=== PATIENT | female | born 1935 | race Caucasian/White ===

== ENCOUNTER 2022-07-25 10:56 | Inpatient (IN) ==
--- NOTE | 2022-07-25 11:39 | Cat Scan Report ---
CLINICAL INFORMATION: Trauma COMPARISON: None. TECHNIQUE: 2.5 mm helical slices were obtained in the skull base to vertex. Following reconstruction, axial reformatted images were reviewed at bone and parenchymal windows. The exam was performed using radiation dose optimization techniques including, but not limited to, automated exposure control, adjustment of the mA and/or kV according to patient size and use of iterative reconstruction technique. FINDINGS: The ventricles, sulci, fissures, and cisterns are symmetrically enlarged compatible with mild age-related atrophy. No extra-axial fluid collections are identified. Mild patchy chronic ischemic changes, in the deep cerebral white matter, are expected for age. There is no hemorrhage, mass effect, or edema. Bone windows show no osseous abnormality. IMPRESSION: Mild atrophy and chronic ischemic changes in the deep cerebral white matter-expected for age. No acute findings Interpreted and Authenticated by: Anshu Millan 07/25/22
[2022-07-25] MEDS ORDERED: ACETAMINOPHEN 325 MG TABLET PO ONE (11:51)
--- NOTE | 2022-07-25 11:53 | XRay Report ---
CLINICAL INFORMATION: Trauma COMPARISON: None. FINDINGS: Acute basicervical fracture of the left hip with moderate impaction and coxa vara angulation appreciated. Older right hip prostheses remains anatomically aligned. There is moderate heterotopic ossification over the right lesser trochanteric area. Mild degenerative change seen in the left hip and both SI joints unchanged. Soft tissue swelling over the fracture site. IMPRESSION: Acute basicervical fracture left hip, with coxa vera angulation and impaction Interpreted and Authenticated by: Anshu Millan 07/25/22
--- NOTE | 2022-07-25 12:00 | XRay Report ---
CLINICAL INFORMATION: Preop COMPARISON: 03/14/2015 TECHNIQUE: Portable FINDINGS: The heart size, mediastinum and pulmonary vessels are unremarkable. The lungs are clear. There are no effusions. The bones and soft tissues are within normal limits. IMPRESSION: Normal chest. Interpreted and Authenticated by: Anshu Millan 07/25/22
--- NOTE | 2022-07-25 12:15 | Cat Scan Report ---
CLINICAL INFORMATION: Trauma-fall COMPARISON: None. TECHNIQUE: 0.625 mm helical slices were obtained from the mid T12 through mid S2 vertebral bodies. Following reconstruction, 2.5 mm coronal, sagittal, and axial reformations (angle to the disc spaces) were processed. Exam was reviewed at bone and soft tissue windows.The exam was performed using radiation dose optimization techniques including, but not limited to, automated exposure control, adjustment of the mA and/or kV according to patient size and use of iterative reconstruction technique. FINDINGS: The lumbar spine is normal in curvature and alignment. Biconcavity of the L4 and L5 vertebral bodies suggests osteopenia. Syndesmophytes also bridge the visualized lower thoracic vertebral bodies T9-T10 through T12-L1. This suggests ankylosing spondylitis. Soft tissues are significant for sigmoid diverticulosis. The right L5 transverse process is enlarged and forms a pseudoarticulation with the right iliac crest. The T11-T12, T12-L1 and L1-2 disc levels are normal. At L2-3, mild broad disc protrusion facet arthropathy result in mild central canal stenosis. At L3-4, moderate broad disc protrusion, ligament flavum hypertrophy and facet arthropathy result in moderate central canal and bilateral lateral recess narrowing. There is also mild bilateral IV foraminal narrowing. There is impingement of the descending L4 nerve roots in the lateral recesses disease. At L4-5, large broad broad partially calcified disc spur complex and facet arthropathy result in severe central canal, severe bilateral lateral recess narrowing and moderate bilateral IV foraminal narrowing. There is impingement of the exiting L4 and descending L5 nerve roots. At L5-S1 mild broad disc protrusion facet arthropathy result in mild central canal narrowing. IMPRESSION: 1. No fracture or other acute posttraumatic change. 2. Multilevel degeneration showing slight progression from 04/14/2018 MRI. There is nerve root impingement at L3-4 and L4-5-as described. 3. Enlargement of the right L5 transverse process with pseudoarticulation with the ileum. 4. Syndesmophytes bridging the lower thoracic vertebral bodies suggesting the possibility of ankylosing spondylitis. Consider correlation HLA-B27 5. Sigmoid diverticulosis Interpreted and Authenticated by: Anshu Millan 07/25/22
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
[2022-07-25] MEDS: HYDROmorphone 0.5 MG/0.5 ML SYRINGE IV PRN ×3 (12:29→16:29)
[2022-07-25 12:46] LABS: Basophils # (Auto) 0.05 K/mcL (0.00-0.30); Basophils % (Auto) 0.7 % (0.0-2.0); Eosinophils # (Auto) 0.06 K/mcL (0.00-0.70); Eosinophils % (Auto) 0.8 % (0.0-7.0); Hematocrit 36.5 % (34.1-44.9); Hemoglobin 11.8 g/dL (11.2-15.7); Lymphocytes # (Auto) 1.15 K/mcL (1.50-4.80); Lymphocytes % (Auto) 15.4 % (15.5-49.0); Mean Cell Volume 96.8 fL (80.0-100.0); Mean Corpuscular HGB Conc 32.3 g/dL (31.0-36.0); Mean Platelet Volume 11.2 fL (8.8-12.5); Monocytes # (Auto) 0.34 K/mcL (0.10-0.90); Monocytes % (Auto) 4.5 % (1.0-12.0); Neutrophils % (Auto) 78.1 % (38.0-78.0); Platelet Count 141 K/mcL (140-440); RBC 3.77 M/mcL (3.59-5.38); Red Cell Distribution Width 12.2 % (11.5-14.5); WBC 7.5 K/mcL (4.5-11.0)
[2022-07-25 12:55] LABS: INR 0.9 (0.9-1.1); Prothrombin Time 12.4 sec (11.9-14.5)
[2022-07-25 13:03] LABS: ALT/SGPT 15 U/L (<40); AST/SGOT 20 U/L (<32); Albumin 4.1 gm/dL (3.2-5.2); Alkaline Phosphatase 112 U/L (39-117); Bilirubin,Total 0.6 mg/dL (0.1-1.0); Blood Urea Nitrogen 14 mg/dL (8-23); Calcium 8.2 mg/dL (8.6-10.4); Carbon Dioxide 27 mmol/L (22-30); Chloride 103 mmol/L (96-108); Globulin 2.1 gm/dL (2.2-3.7); Glomerular Filtration Rate 78; Glucose 116 mg/dL (70-105)
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
[2022-07-25] MEDS ORDERED: ceFAZolin 2 GM in DEXTROSE 5% IN WATER 50 ML IV SCH ×2 (14:30→15:45)
[2022-07-25 14:39] LABS: Appearance,Urine CLEAR (Clear); Bilirubin,Urine Negative (Negative); Color,Urine YELLOW; Culture Indicated,Urine No; Glucose,Urine (UA) Negative (Negative); Ketones,Urine 5 mg/dL (Negative); Leukocyte Esterase,Urine Negative /uL (Negative); Nitrate,Urine Negative (Negative); Protein,Urine Negative (Negative); Specific Gravity,Urine 1.015 (1.000-1.035); Urine Blood Negative (Negative); Urobilinogen,Urine Negative
[2022-07-25] MEDS ORDERED: MAGNESIUM SULFATE 2 GM/50 ML BAG IV ONE (14:50)
[2022-07-25] MEDS ORDERED: KETAMINE 50 MG/ML Syringe (ANEST) IV ONE (14:50)
[2022-07-25] MEDS ORDERED: TRANEXAMIC ACID 1,000 MG/10 ML VIAL ONE (14:50)
[2022-07-25] MEDS ORDERED: LIDOCAINE HCL/PF 100 MG/5 ML SYRINGE IV ONE (14:50)
[2022-07-25] MEDS ORDERED: ePHEDrine 50 MG/5 ML SYRINGE (ANEST) IV ONE (14:50)
[2022-07-25] MEDS ORDERED: DEXAMETHASONE 10 MG/ML VIAL ONE (14:50)
[2022-07-25] MEDS ORDERED: PROPOFOL 200 MG/20 ML VIAL IV ONE (14:50)
[2022-07-25] MEDS ORDERED: GLYCOPYRROLATE 0.2 MG/ML VIAL IV ONE (14:50)
[2022-07-25] MEDS ORDERED: NALOXONE HCL 0.4 MG/ML VIAL IV PRN (15:35)
[2022-07-25] MEDS ORDERED: diphenhydrAMINE 50 MG/ML VIAL IV PRN (15:35)
[2022-07-25] MEDS ORDERED: LACTATED RINGERS 250 ML IV PRN (15:35)
[2022-07-25] MEDS ORDERED: MEPERIDINE 25 MG/ML VIAL IV PRN (15:35)
[2022-07-25] MEDS ORDERED: ACETAMINOPHEN 1,000 MG/100 ML BAG IV ONE (15:35)
[2022-07-25] MEDS ORDERED: IPRATROPIUM/ALBUTEROL 3 ML AMPUL.NEB NEB PRN ×2 (15:35→17:20)
[2022-07-25] MEDS ORDERED: PROMETHAZINE 25 MG/ML VIAL IV PRN (15:35)
[2022-07-25] MEDS ORDERED: ONDANSETRON 4 MG/2 ML VIAL IV PRN ×2 (15:35→17:20)
[2022-07-25] MEDS ORDERED: FLEETS ADULT ENEMA PR PRN (15:44)
[2022-07-25] MEDS ORDERED: POLYETHYLENE GLYCOL 3350 17 GM PACKET PO PRN ×2 (15:44→17:20)
[2022-07-25] MEDS ORDERED: BISACODYL 10 MG SUPP.RECT PR PRN (15:44)
[2022-07-25] MEDS ORDERED: MAGNESIUM HYDROXIDE 30 ML ORAL.SUSP PO PRN (15:44)
--- NOTE | 2022-07-25 15:44 | Brief Operative Note ---
Brief Operative Note Date of procedure: 07/25/22 Pre-op diagnosis: left hip fracture Post-op diagnosis: same Procedure: gamma, short Grafts/Implants: Yes Anesthesia: GLMA Findings: stable fixation Complications: none Surgeon: George Church Tube Building Machine Operator: Josseline Russell Estimated blood loss (cc): 150 Specimens Removed/Pathology: none sent Condition: stable Disposition: PACU
[2022-07-25] MEDS ORDERED: LACTATED RINGERS 1,000 ML IV SCH (15:45)
--- NOTE | 2022-07-25 16:05 | Consultation ---
DATE OF CONSULTATION: 07/25/2022 CHIEF COMPLAINT: This is an 86-year-old female with chief complaint of left hip fracture. HISTORY OF PRESENT ILLNESS: Ms Lozada sustained a fall this morning, it was non-syncopal. She had immediate pain, was unable to bear weight. She was transferred for further evaluation and management. She is now admitted to the hospital service with a left base of the neck intratrochanteric hip fracture. PAST MEDICAL HISTORY: Significant for hypertension, anxiety disorder, chronic low back pain, diverticulitis, neuropathy, bundle branch block, and chronic lumbar issues. PAST SURGICAL HISTORY: She has had a previous right total hip arthroplasty of bilateral total knees, lumbar surgery. MEDICATIONS: Include: 1. Lasix. 2. Thyroid. 3. Vitamin D. ALLERGIES: MULTIPLE. PLEASE SEE MEDICAL RECORD. PHYSICAL EXAMINATION: GENERAL: She is awake and alert. She is resting comfortably. HEAD: Normocephalic, atraumatic. EYES: PERRLA. Conjunctivae clear. ENT: Within normal limits. NECK: Supple without pain on range of motion. HEART: Regular. LUNGS: Clear. ABDOMEN: Benign. LEFT LOWER EXTREMITY: Carefully positioned. She does have pain with any motion. She seems to be gross without neurovascular deficit. IMAGING: Radiographs demonstrate base of the neck fracture. IMPRESSION: Fracture, left hip. PLAN: We will proceed with an intramedullary device. Surgical procedure, risk, complication, limitation have been discussed. She understands this well and wished to proceed. [id number] Job ID: [id number] Doc ID: [id number] George Church MD
[2022-07-25] MEDS: fentaNYL 100 MCG/2 ML VIAL IV PRN ×3 (16:14→16:24)
[2022-07-25] MEDS ORDERED: METHOCARBAMOL 1,000 MG/10 ML VIAL IV PRN (16:30)
[2022-07-25] MEDS ORDERED: METHOCARBAMOL 1,000 MG/10 ML VIAL ONE (16:43)
[2022-07-25] MEDS ORDERED: POTASSIUM CHLORIDE 40 MEQ in DEXTROSE 5% IN WATER 500 ML IV PRN (17:20)
[2022-07-25] MEDS ORDERED: MAGNESIUM SULFATE 2 GM/50 ML BAG IV PRN (17:20)
[2022-07-25] MEDS ORDERED: ACETAMINOPHEN 325 MG TABLET PO PRN (17:20)
[2022-07-25] MEDS ORDERED: HYDROcodone/APAP 5/325MG TABLET PO PRN (17:20)
[2022-07-25] MEDS ORDERED: SENNOSIDES 1 TABLET PO PRN (17:20)
[2022-07-25] MEDS ORDERED: POTASSIUM CHLORIDE 20 MEQ TABLET PO PRN ×2 (17:20)
[2022-07-25] MEDS ORDERED: IBUPROFEN 200 MG TABLET PO PRN (17:29)
[2022-07-25] MEDS: morphine 4 MG/ML VIAL IV PRN ×2 (17:36→18:39)
[2022-07-25] MEDS: 0.9 % SODIUM CHLORIDE 10 ML SYRINGE IV SCH (17:37)
--- NOTE | 2022-07-25 18:16 | XRay Report ---
IMPRESSION:: Two digital images are submitted from the OR. Basicervical fracture was reduced to anatomic alignment and transfixed with gamma nail. Total fluoroscopy time 0.9 minutes. Interpreted and Authenticated by: Anshu Millan 07/25/22
[2022-07-25] MEDS: HYDROCODONE/APAP 7.5/325MG TABLET PO PRN (18:37)
[2022-07-25] MEDS ORDERED: DOCUSATE SODIUM 100 MG CAPSULE PO SCH (21:00)
[2022-07-25] MEDS: DOCUSATE SODIUM 100 MG CAPSULE PO SCH (21:33)
[2022-07-25] MEDS: SENNOSIDES 1 TABLET PO SCH (21:33)
[2022-07-25] MEDS: ASPIRIN 81 MG TAB.CHEW PO SCH (21:33)
[2022-07-26] MEDS: 0.9 % SODIUM CHLORIDE 10 ML SYRINGE IV SCH ×4 (00:12→20:06)
[2022-07-26] MEDS: ceFAZolin 1 GM VIAL IV SCH ×2 (00:12→07:13)
[2022-07-26] MEDS: KETOROLAC TROMETHAMINE 1 GTT BOTTLE OU SCH ×5 (00:12→20:00)
[2022-07-26 06:11] LABS: Basophils # (Auto) 0.01 K/mcL (0.00-0.30); Basophils % (Auto) 0.1 % (0.0-2.0); Eosinophils # (Auto) 0 K/mcL (0.00-0.70); Eosinophils % (Auto) 0 % (0.0-7.0); Hematocrit 32.8 % (34.1-44.9); Hemoglobin 10.7 g/dL (11.2-15.7); Lymphocytes # (Auto) 0.65 K/mcL (1.50-4.80); Lymphocytes % (Auto) 6.8 % (15.5-49.0); Mean Cell Volume 95.6 fL (80.0-100.0); Mean Corpuscular HGB Conc 32.6 g/dL (31.0-36.0); Mean Platelet Volume 11.1 fL (8.8-12.5); Monocytes # (Auto) 0.41 K/mcL (0.10-0.90); Monocytes % (Auto) 4.3 % (1.0-12.0); Neutrophils % (Auto) 88.3 % (38.0-78.0); Platelet Count 138 K/mcL (140-440); RBC 3.43 M/mcL (3.59-5.38); Red Cell Distribution Width 11.9 % (11.5-14.5); WBC 9.6 K/mcL (4.5-11.0)
[2022-07-26 06:39] LABS: ALT/SGPT 13 U/L (<40); AST/SGOT 22 U/L (<32); Albumin 3.5 gm/dL (3.2-5.2); Albumin/Globulin Ratio 1.8 (1.0-2.3); Alkaline Phosphatase 90 U/L (39-117); Bilirubin,Direct < 0.2 mg/dL (0-0.3); Bilirubin,Total 0.4 mg/dL (0.1-1.0); Blood Urea Nitrogen 17 mg/dL (8-23); Carbon Dioxide 26 mmol/L (22-30); Chloride 103 mmol/L (96-108); Globulin 1.9 gm/dL (2.2-3.7); Glomerular Filtration Rate 78; Glucose 148 mg/dL (70-105); Lactate Dehydrogenase 251 U/L (135-225); Phosphorous 4.9 mg/dL (2.5-4.5); Triglycerides 66 mg/dL (<150); Uric Acid 6.6 mg/dL (2.5-8.0)
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
[2022-07-26] MEDS: ASPIRIN 81 MG TAB.CHEW PO SCH ×2 (08:33→20:06)
[2022-07-26] MEDS: FUROSEMIDE 40 MG TABLET PO SCH (08:34)
[2022-07-26] MEDS: DOCUSATE SODIUM 100 MG CAPSULE PO SCH ×2 (08:36→20:05)
[2022-07-26] MEDS: ATORVASTATIN 40 MG TABLET PO SCH (08:36)
[2022-07-26] MEDS: EZETIMIBE 10 MG TABLET PO SCH (08:38)
[2022-07-26] MEDS: VITAMIN D3 25 MCG TABLET PO SCH (08:38)
[2022-07-26] MEDS: LEVOTHYROXINE SODIUM 112 MCG TABLET PO SCH (08:38)
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
[2022-07-26] MEDS: HYDROCODONE/APAP 7.5/325MG TABLET PO PRN ×2 (11:32→20:05)
--- NOTE | 2022-07-26 12:37 | Orthopedic Progress Note ---
SUBJECTIVE Subjective Patient information: Note initiated : 07/26/22 at 12:34 pm Service Date, if different from initiated Date: [] Patient: Celia Lozada 86 y/o F admitted on 07/25/22 for FALL, LT HIP/KNEE PAIN. Chief Complaint: [S/p ORIF of left hip] Patient is doing well. She does have left hip pain secondary to her fracture. Constitutional Vitals: Vital Signs Temp Pulse Resp BP Pulse Ox O2 Del Method O2 Flow Rate 97.2 F 62 14 134/46 99 1 07/26/22 11:25 07/26/22 11:25 07/26/22 11:25 07/26/22 11:25 07/26/22 11:25 07/26/22 11:25 07/26/22 04:00 Period Temp Pulse Resp BP Sys/Archuleta Pulse Ox O2 Del Method O2 Flow Rate Last 24 Hr 96.9 F-98.4 F 55-97 0-22 124-197/44-93 94-100 Nasal Cannula- Simple Mask 1-6 Intake and Output 07/25/22 07/26/22 07/26/22 21:59 05:59 13:59 Intake Total 750 Output Total 75 650 Balance 675 -650 Weight 218 lb 3.2 oz 218 lb Intake & Output: Intake & Output 07/25/22 07/26/22 07/26/22 21:59 05:59 13:59 Intake Total 750 Output Total 75 650 Balance 675 -650 Weight 218 lb 3.2 oz 218 lb Intake: IV 150 Ancef 2 gm In Dextrose 5% in 50 Water 50 ml @ 100 mls/hr IV PREOP [facility] Rx#:[id number] IV - Manual Only 600 Output: Void Amount 650 Estimated Blood Loss 75 Other: Urine Appearance Clear Uretheral (Skinner) Clear Clear Clear Urine Color Yellow Yellow Uretheral (Skinner) Dark Yellow Dark Yellow Yellow Urine Odor Normal Uretheral (Skinner) Normal Head Head exam: Present atraumatic, normal inspection and normocephalic Extremities Exam Extremities exam: Present calf tenderness (negative bilaterally), Diogenes's sign (negative bilaterally), Foot pink and warm and neurovascular intact Neurological Exam Neurological exam: Present oriented X3 OBJ DATA Labs CBC & Chem 7: 07/26/22 05:18 07/26/22 05:17 Labs: Abnormal Lab Results 07/26/22 07/26/22 07/25/22 05:18 05:17 13:00 RBC 3.43 L Hgb 10.7 L Hct 32.8 L Plt Count 138 L Neut % (Auto) 88.3 H Lymph % (Auto) 6.8 L Lymph # (Auto) 0.65 L Absolute Neutrophils 8.49 H Glucose 148 H Calcium 8.0 L Phosphorus 4.9 H Lactate Dehydrogenase 251 H Total Protein 5.4 L Globulin 1.9 L Urine Ketones 5 A 07/25/22 07/25/22 12:18 12:17 RBC Hgb Hct Plt Count Neut % (Auto) 78.1 H Lymph % (Auto) 15.4 L Lymph # (Auto) 1.15 L Absolute Neutrophils Glucose 116 H Calcium 8.2 L Phosphorus Lactate Dehydrogenase Total Protein Globulin 2.1 L Urine Ketones Meds: Medications Acetaminophen (Acetaminophen 325 Mg Tablet) 650 mg PO Q6HP PRN; Protocol PRN Reason: Per Pain Protocol/Fever > 101 Hydrocodone Bitart/Acetaminophen (Hydrocodone/Apap 7.5/325mg Tablet) 0 tab PO Q4HP PRN; Protocol PRN Reason: Per Pain Protocol Last Admin: 07/26/22 11:32 Dose: 2 tab Albuterol/Ipratropium (Ipratropium/Albuterol 3 Ml Ampul.Neb) 3 ml NEB Q4HP PRN PRN Reason: Shortness Of Breath Aspirin (Aspirin 81 Mg Tab.Chew) 81 mg PO BID [facility] Last Admin: 07/26/22 08:33 Dose: 81 mg Atorvastatin Calcium (Atorvastatin 40 Mg Tablet) 40 mg PO QDAY [facility] Last Admin: 07/26/22 08:36 Dose: Not Given Bisacodyl (Bisacodyl 10 Mg Supp.Rect) 10 mg NV Q2-3DAYS PRN PRN Reason: Constipation Docusate Sodium (Docusate Sodium 100 Mg Capsule) 100 mg PO BID [facility] Last Admin: 07/26/22 08:36 Dose: 100 mg Ezetimibe (Ezetimibe 10 Mg Tablet) 10 mg PO QDAY [facility] Last Admin: 07/26/22 08:38 Dose: Not Given Furosemide (Furosemide 40 Mg Tablet) 40 mg PO DAILY [facility] Last Admin: 07/26/22 08:34 Dose: 40 mg Potassium Chloride 40 meq/ (Dextrose) 520 mls @ 130 mls/hr IV UD PRN PRN Reason: Potassium < 3 Magnesium Sulfate (Magnesium Sulfate) 2 gm in 50 mls @ 50 mls/hr IV UD PRN PRN Reason: Magnesium </= 1.6 Ibuprofen (Ibuprofen 200 Mg Tablet) 200 mg PO Q8HP PRN PRN Reason: Pain Ketorolac Tromethamine (Ketorolac Tromethamine 1 Gtt Bottle) 1 gtt OU QID [facility] Last Admin: 07/26/22 11:31 Dose: Not Given Levothyroxine Sodium (Levothyroxine Sodium 112 Mcg Tablet) 112 mcg PO DAILY [facility] Last Admin: 07/26/22 08:38 Dose: 112 mcg Magnesium Hydroxide (Magnesium Hydroxide 30 Ml Oral.Susp) 30 ml PO BIDP PRN PRN Reason: Constipation Methocarbamol (Methocarbamol 750 Mg Tablet) 750 mg PO Q6HP PRN PRN Reason: Muscle Spasm Morphine Sulfate (Morphine 4 Mg/Ml Vial) 0 mg IV Q3HP PRN PRN Reason: Pain Last Admin: 07/25/22 18:39 Dose: 2 mg Ondansetron HCl (Ondansetron 4 Mg/2 Ml Vial) 4 mg IV Q4HP PRN PRN Reason: Nausea And Vomiting Polyethylene Glycol (Polyethylene Glycol 3350 17 Gm Packet) 17 gm PO DAILYP PRN PRN Reason: Constipation Potassium Chloride (Potassium Chloride 20 Meq Tablet) 40 meq PO UD PRN PRN Reason: Potssium is 3-3.5 Potassium Chloride (Potassium Chloride 20 Meq Tablet) 40 meq PO UD PRN PRN Reason: Potassium < 3 Senna (Sennosides 1 Tablet) 2 tab PO HS [facility] Last Admin: 07/25/22 21:33 Dose: 2 tab Sodium Biphosphate/Sodium Phosphate (Fleets Adult Enema) 1 dose NV Q3-4DAYS PRN PRN Reason: Constipation Sodium Chloride (0.9 % Sodium Chloride 10 Ml Syringe) 10 ml IV Q8 [facility] Last Admin: 07/26/22 07:14 Dose: 10 ml Vitamin D (Vitamin D3 25 Mcg Tablet) 50 mcg PO DAILY [facility] Last Admin: 07/26/22 08:38 Dose: 50 mcg A/P Assessment and plan (1) Closed fracture of left hip: Assessment and plan: TTWB on LLE. Mobilize with PT/OT. Likely discharge to SNF. Status: Acute Time Spent With Patient Time: Total time spent is greater than 50% in coordination of care (as documented) at patient's floor/unit and/or counseling patient:
--- NOTE | 2022-07-26 17:21 | EKG ---
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
[2022-07-26] MEDS: SENNOSIDES 1 TABLET PO SCH (20:05)
[2022-07-27] MEDS: 0.9 % SODIUM CHLORIDE 10 ML SYRINGE IV SCH ×3 (05:36→20:17)
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
--- NOTE | 2022-07-27 07:49 | General Surgery Progress Note ---
SUBJECTIVE Subjective Patient information: Note initiated : 07/27/22 at 7:47 am Service Date, if different from initiated Date: [] Patient: Celia Lozada 86 y/o F admitted on 07/25/22 for FALL, LT HIP/KNEE PAIN. Chief Complaint: [] Principal diagnosis: hip fracture Interval history: no new ortho issues Constitutional Vitals: Vital Signs Temp Pulse Resp BP Pulse Ox O2 Del Method O2 Flow Rate 98.2 F 74 17 155/57 96 1 07/27/22 04:22 07/27/22 04:22 07/27/22 04:22 07/27/22 04:22 07/27/22 04:22 07/27/22 04:22 07/26/22 04:00 Period Temp Pulse Resp BP Sys/Archuleta Pulse Ox O2 Del Method O2 Flow Rate Last 24 Hr 97.2 F-98.2 F 62-78 12-17 113-155/44-57 94-100 Nasal Cannula- Room Air Intake and Output 07/26/22 07/27/22 07/27/22 21:59 05:59 13:59 Intake Total 120 240 Output Total 325 750 Balance -205 -510 Weight 218 lb 2 oz Intake & Output: Intake & Output 07/26/22 07/27/22 07/27/22 21:59 05:59 13:59 Intake Total 120 240 Output Total 325 750 Balance -205 -510 Weight 218 lb 2 oz Intake: Oral 120 240 Output: Urine Catheter Amount 325 750 Other: Meal Dinner Percent of Meal Consumed 100% Feeding Ability Assist with Tray Set Up Urine Appearance Clear Uretheral (Skinner) Clear Urine Color Yellow Yellow Extremities Exam Extremities exam: Present normal inspection A/P Assessment and plan (1) Closed fracture of left hip: Status: Acute Plan post hip fracture orif - dc planning, mobilize Sepsis Sepsis Identified: No Narrative A/P Narrative: see above Plan of Treatment: snf Time Spent With Patient Time: Total time spent is greater than 50% in coordination of care (as documented) at patient's floor/unit and/or counseling patient: Total time spent with greater than 50% in coordination of care (as documented) at patient's floor/unit and/or counseling patient:: less than 15 minutes Critical Care Time: No Attestation: g
[2022-07-27] MEDS: ASPIRIN 81 MG TAB.CHEW PO SCH ×2 (08:14→20:09)
[2022-07-27] MEDS: VITAMIN D3 25 MCG TABLET PO SCH (08:14)
[2022-07-27] MEDS: LEVOTHYROXINE SODIUM 112 MCG TABLET PO SCH (08:15)
[2022-07-27] MEDS: ATORVASTATIN 40 MG TABLET PO SCH (08:15)
[2022-07-27] MEDS: DOCUSATE SODIUM 100 MG CAPSULE PO SCH ×2 (08:15→20:09)
[2022-07-27] MEDS: FUROSEMIDE 40 MG TABLET PO SCH (08:15)
[2022-07-27] MEDS: EZETIMIBE 10 MG TABLET PO SCH (08:15)
[2022-07-27] MEDS: KETOROLAC TROMETHAMINE 1 GTT BOTTLE OU SCH ×4 (08:16→20:09)
[2022-07-27] MEDS: HYDROCODONE/APAP 7.5/325MG TABLET PO PRN (19:12)
[2022-07-27] MEDS: SENNOSIDES 1 TABLET PO SCH (20:08)
[2022-07-28] MEDS: 0.9 % SODIUM CHLORIDE 10 ML SYRINGE IV SCH ×2 (05:11→18:24)
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
[2022-07-28] MEDS: EZETIMIBE 10 MG TABLET PO SCH (09:00)
[2022-07-28] MEDS: ASPIRIN 81 MG TAB.CHEW PO SCH ×2 (09:00→18:50)
[2022-07-28] MEDS: ATORVASTATIN 40 MG TABLET PO SCH (09:00)
[2022-07-28] MEDS: VITAMIN D3 25 MCG TABLET PO SCH (09:00)
[2022-07-28] MEDS: LEVOTHYROXINE SODIUM 112 MCG TABLET PO SCH (09:00)
[2022-07-28] MEDS: DOCUSATE SODIUM 100 MG CAPSULE PO SCH ×2 (09:01→18:52)
[2022-07-28] MEDS: FUROSEMIDE 40 MG TABLET PO SCH (09:01)
[2022-07-28] MEDS: KETOROLAC TROMETHAMINE 1 GTT BOTTLE OU SCH ×3 (09:02→18:24)
[2022-07-28] MEDS: METHOCARBAMOL 750 MG TABLET PO PRN ×2 (11:40→18:51)
--- NOTE | 2022-07-28 15:28 | General Surgery Progress Note ---
SUBJECTIVE Subjective Patient information: Note initiated : 07/28/22 at 3:27 pm Service Date, if different from initiated Date: [] Patient: Celia Lozada 86 y/o F admitted on 07/25/22 for FALL, LT HIP/KNEE PAIN. Chief Complaint: [] Principal diagnosis: hip fracture Interval history: no complaints Constitutional Vitals: Vital Signs Temp Pulse Resp BP Pulse Ox O2 Del Method O2 Flow Rate 97.5 F 63 16 121/65 95 1 07/28/22 12:00 07/28/22 12:00 07/28/22 12:00 07/28/22 12:00 07/28/22 12:00 07/28/22 12:00 07/26/22 04:00 Period Temp Pulse Resp BP Sys/Archuleta Pulse Ox O2 Del Method O2 Flow Rate Last 24 Hr 97.0 F-99.2 F 63-74 16-17 121-184/47-65 94-99 Room Air-Room Air Intake and Output 07/28/22 07/28/22 07/28/22 05:59 13:59 21:59 Intake Total 200 Output Total 575 Balance 200 -575 Intake & Output: Intake & Output 07/28/22 07/28/22 07/28/22 05:59 13:59 21:59 Intake Total 200 Output Total 575 Balance 200 -575 Intake: Oral 200 Output: Void Amount 575 Other: Meal Breakfast Percent of Meal Consumed 100% Feeding Ability Independent Urine Appearance Clear Urine Color Yellow Dark Yellow Urine Odor Normal Extremities Exam Extremities exam: Present normal inspection A/P Assessment and plan (1) Closed fracture of left hip: Status: Acute Plan mobilize, placement Sepsis Sepsis Identified: No Narrative A/P Narrative: no new issues Plan of Treatment: snf Time Spent With Patient Time: Total time spent is greater than 50% in coordination of care (as documented) at patient's floor/unit and/or counseling patient: Total time spent with greater than 50% in coordination of care (as documented) at patient's floor/unit and/or counseling patient:: less than 15 minutes Critical Care Time: No Attestation: chanel
[2022-07-28] MEDS: SENNOSIDES 1 TABLET PO SCH (18:49)
[2022-07-28] MEDS: HYDROCODONE/APAP 7.5/325MG TABLET PO PRN (18:50)
[2022-07-29] MEDS: METHOCARBAMOL 750 MG TABLET PO PRN (04:01)
[2022-07-29] MEDS: HYDROCODONE/APAP 7.5/325MG TABLET PO PRN ×2 (04:01→08:19)
[2022-07-29] MEDS: ASPIRIN 81 MG TAB.CHEW PO SCH ×2 (04:03→08:10)
[2022-07-29] MEDS: SENNOSIDES 1 TABLET PO SCH (04:04)
[2022-07-29] MEDS: KETOROLAC TROMETHAMINE 1 GTT BOTTLE OU SCH ×2 (04:04→08:14)
[2022-07-29] MEDS: DOCUSATE SODIUM 100 MG CAPSULE PO SCH ×2 (04:04→08:12)
[2022-07-29] MEDS: 0.9 % SODIUM CHLORIDE 10 ML SYRINGE IV SCH ×2 (04:05→08:09)
--- NOTE | 2022-07-29 06:40 | Orthopedic Progress Note ---
SUBJECTIVE Subjective Patient information: Note initiated : 07/29/22 at 6:37 am Service Date, if different from initiated Date: [] Patient: Celia Lozada 86 y/o F admitted on 07/25/22 for FALL, LT HIP/KNEE PAIN. Chief Complaint: [S/p ORIF of left hip fx] Patient is overall doing well but does require assistance with transfer and ambulation. Her pain is well-controlled. She denies any lower extremity calf tenderness, new onset SOA, or chest pain. Principal diagnosis: hip fracture Constitutional Vitals: Vital Signs Temp Pulse Resp BP Pulse Ox O2 Del Method O2 Flow Rate 97.0 F 66 18 144/48 97 1 07/29/22 03:51 07/29/22 03:51 07/29/22 03:51 07/29/22 03:51 07/29/22 03:51 07/29/22 03:51 07/26/22 04:00 Period Temp Pulse Resp BP Sys/Archuleta Pulse Ox O2 Del Method O2 Flow Rate Last 24 Hr 97.0 F-99.2 F 63-72 15-18 121-184/48-68 92-99 Room Air-Room Air Intake and Output 07/28/22 07/29/22 07/29/22 21:59 05:59 13:59 Intake Total 260 Output Total 250 Balance 10 Weight 202 lb Intake & Output: Intake & Output 07/28/22 07/29/22 07/29/22 21:59 05:59 13:59 Intake Total 260 Output Total 250 Balance 10 Weight 202 lb Intake: Oral 260 Output: Void Amount 250 Other: Meal Dinner Percent of Meal Consumed 25% Feeding Ability Independent General appearance: cooperative and no acute distress Head Head exam: Present atraumatic and normal inspection Extremities Exam Extremities exam: Present calf tenderness (negative bilaterally), full ROM (limited LLE), Diogenes's sign (negative bilaterally) and Foot pink and warm Neurological Exam Neurological exam: Present alert and oriented X3 OBJ DATA Labs CBC & Chem 7: 07/26/22 05:18 07/26/22 05:17 Labs: Abnormal Lab Results 07/26/22 05:17 Glucose 148 H Calcium 8.0 L Phosphorus 4.9 H Lactate Dehydrogenase 251 H Total Protein 5.4 L Globulin 1.9 L Meds: Medications Acetaminophen (Acetaminophen 325 Mg Tablet) 650 mg PO Q6HP PRN; Protocol PRN Reason: Per Pain Protocol/Fever > 101 Hydrocodone Bitart/Acetaminophen (Hydrocodone/Apap 7.5/325mg Tablet) 0 tab PO Q4HP PRN; Protocol PRN Reason: Per Pain Protocol Last Admin: 07/29/22 04:01 Dose: 1 tab Albuterol/Ipratropium (Ipratropium/Albuterol 3 Ml Ampul.Neb) 3 ml NEB Q4HP PRN PRN Reason: Shortness Of Breath Aspirin (Aspirin 81 Mg Tab.Chew) 81 mg PO BID [facility] Last Admin: 07/29/22 04:03 Dose: 81 mg Atorvastatin Calcium (Atorvastatin 40 Mg Tablet) 40 mg PO QDAY [facility] Last Admin: 07/28/22 09:00 Dose: 40 mg Bisacodyl (Bisacodyl 10 Mg Supp.Rect) 10 mg [place] Q2-3DAYS PRN PRN Reason: Constipation Docusate Sodium (Docusate Sodium 100 Mg Capsule) 100 mg PO BID [facility] Last Admin: 07/29/22 04:04 Dose: Not Given Ezetimibe (Ezetimibe 10 Mg Tablet) 10 mg PO QDAY [facility] Last Admin: 07/28/22 09:00 Dose: 10 mg Furosemide (Furosemide 40 Mg Tablet) 40 mg PO DAILY [facility] Last Admin: 07/28/22 09:01 Dose: 40 mg Potassium Chloride 40 meq/ (Dextrose) 520 mls @ 130 mls/hr IV UD PRN PRN Reason: Potassium < 3 Magnesium Sulfate (Magnesium Sulfate) 2 gm in 50 mls @ 50 mls/hr IV UD PRN PRN Reason: Magnesium </= 1.6 Ibuprofen (Ibuprofen 200 Mg Tablet) 200 mg PO Q8HP PRN PRN Reason: Pain Last Admin: 07/27/22 04:38 Dose: 200 mg Ketorolac Tromethamine (Ketorolac Tromethamine 1 Gtt Bottle) 1 gtt OU QID [facility] Last Admin: 07/29/22 04:04 Dose: 1 gtt Levothyroxine Sodium (Levothyroxine Sodium 112 Mcg Tablet) 112 mcg PO DAILY [facility] Last Admin: 07/28/22 09:00 Dose: 112 mcg Magnesium Hydroxide (Magnesium Hydroxide 30 Ml Oral.Susp) 30 ml PO BIDP PRN PRN Reason: Constipation Methocarbamol (Methocarbamol 750 Mg Tablet) 750 mg PO Q6HP PRN PRN Reason: Muscle Spasm Last Admin: 07/29/22 04:01 Dose: 750 mg Morphine Sulfate (Morphine 4 Mg/Ml Vial) 0 mg IV Q3HP PRN PRN Reason: Pain Last Admin: 07/25/22 18:39 Dose: 2 mg Ondansetron HCl (Ondansetron 4 Mg/2 Ml Vial) 4 mg IV Q4HP PRN PRN Reason: Nausea And Vomiting Polyethylene Glycol (Polyethylene Glycol 3350 17 Gm Packet) 17 gm PO DAILYP PRN PRN Reason: Constipation Potassium Chloride (Potassium Chloride 20 Meq Tablet) 40 meq PO UD PRN PRN Reason: Potssium is 3-3.5 Potassium Chloride (Potassium Chloride 20 Meq Tablet) 40 meq PO UD PRN PRN Reason: Potassium < 3 Senna (Sennosides 1 Tablet) 2 tab PO HS [facility] Last Admin: 07/29/22 04:04 Dose: 2 tab Sodium Biphosphate/Sodium Phosphate (Fleets Adult Enema) 1 dose [place] Q3-4DAYS PRN PRN Reason: Constipation Sodium Chloride (0.9 % Sodium Chloride 10 Ml Syringe) 10 ml IV Q8 [facility] Last Admin: 07/29/22 04:05 Dose: Not Given Vitamin D (Vitamin D3 25 Mcg Tablet) 50 mcg PO DAILY [facility] Last Admin: 07/28/22 09:00 Dose: 50 mcg A/P Assessment and plan (1) Closed fracture of left hip: Assessment and plan: Mobilize today with PT/OT. Apply silver dressing prior to discharge. Discharge to SNF today. F/u with [facility] in 2 weeks. Status: Acute Narrative Plan of Treatment: snf Time Spent With Patient Time: Total time spent is greater than 50% in coordination of care (as documented) at patient's floor/unit and/or counseling patient:
[2022-07-29] MEDS: EZETIMIBE 10 MG TABLET PO SCH (08:10)
[2022-07-29] MEDS: VITAMIN D3 25 MCG TABLET PO SCH (08:10)
[2022-07-29] MEDS: FUROSEMIDE 40 MG TABLET PO SCH (08:11)
[2022-07-29] MEDS: LEVOTHYROXINE SODIUM 112 MCG TABLET PO SCH (08:12)
[2022-07-29] MEDS: ATORVASTATIN 40 MG TABLET PO SCH (08:13)
--- NOTE | 2022-08-08 08:16 | Operative Note ---
DATE OF OPERATION: 07/25/2022 DATE OF PROCEDURE: 07/25/2022 PREOPERATIVE DIAGNOSIS: Left intertrochanteric/low base of the neck hip fracture. POSTOPERATIVE DIAGNOSIS: Left intertrochanteric/low base of the neck hip fracture. OPERATION PROPOSED: Reduction and internal fixation of left intertrochanteric/low base of neck hip fracture with a hip screw. OPERATION PERFORMED: Same. SURGEON: George Church M.D. PETROLEUM REFINERY OPERATOR: Josseline Russell PA-C. The expertise and technical skill of this provider were required throughout the case. The PA assisted with preoperative coordination, intraoperative retraction, wound closure, and dressing and splint application, as well as postoperative documentation and care coordination. INDICATIONS: This is an elderly lady with a displaced hip fracture. We have elected to proceed with reduction and internal fixation. DESCRIPTION OF PROCEDURE: Informed consent was obtained. She was taken to the operating room and provided appropriate anesthetic and prophylactic antibiotics. She was carefully positioned. The best possible reduction was obtained on the fracture table. An incision was made proximal to the greater trochanter and advanced down to the tip of the greater trochanter and advanced a 3.2 mm guidewire into the femoral shaft. An opening reamer was utilized and an intramedullary gee was advanced. With this in place, an additional guidewire was then placed across the fracture. A second derotation wire was also applied. I reamed and then placed a hip bolt that was locked to the intramedullary device. The distal interlocking screw was also placed. Wounds were irrigated thoroughly. I closed with a 0 Vicryl in the gluteal fascia, 2-0 inverted deep dermal and yvette. The procedure was tolerated well. No complications. Blood loss 100 mL. GDD:[id number] Job ID: [id number] Doc ID: [id number] George Church MD
== END 2022-07-29 12:00 | DRG 482 ==
LOC: ED 10:56 → SUR 14:25 → MEDSUR 17:05
PROVIDERS: ADMIT Internal Medicine; ATTEND Orthopaedic Surgery Orthopaedic Surgery of the Spine